=== PATIENT | female | born 1970 | race Caucasian/White ===

== ENCOUNTER → 2025-07-16 13:46 | Outpatient (REF) | payer OTHER, SELFPAY | LOC: EMG 13:46 | PROVIDERS: ATTENDING PHYSICIAN Pain Medicine Interventional Pain Medicine; FAMILY PHYSICIAN Family Medicine | DX: M51.26 Other intervertebral disc displacement, lumbar region (principal); M54.16 Radiculopathy, lumbar region; R20.0 Anesthesia of skin | CPT/HCPCS: 95886; 95911 ==